=== PATIENT | male | born 1995 | race Caucasian/White ===

== ENCOUNTER → 2018-03-02 | Outpatient (CLI) | payer BC ==
[~2018-03-02] MED LIST: HYDR-317 PO; IBUP800T37 PO
--- NOTE | 2018-03-02 10:27 | RADIOLOGY IMAGING REPORT ---
FACILITY: [facility] PATIENT NAME: Amarjit Del Rosario : 1995 MR: [id number] V: [id number] EXAM DATE: ORDERING PHYSICIAN: ANGIE GLASS TECHNOLOGIST: Location: [facility] Patient: Amarjit Del Rosario : 1995 Visit/Account:[id number] Date of Sevice: 03/02/2018 Technique: GROIN ULTRASOUND HISTORY: Assess for right and left inguinal hernia Comparison studies: None FINDINGS: Limited grayscale and color images were obtained of the right and left inguinal canals. No visualized hernia is identified. Normal appearing adjacent vasculature is present. IMPRESSION: 1. No evidence of inguinal hernia. Report Dictated By: Narciso Lopez DO at 03/02/2018 10:18 AM Report E-Signed By: Narciso Lopez DO at 03/02/2018 10:22 AM WSN:[id number]
== END ==
LOC: US 09:01
PROVIDERS: ATTEND Physician Assistant
DX: R10.32 Left lower quadrant pain (principal)
CPT/HCPCS: 76705